=== PATIENT | male | born 1990 | race Caucasian/White ===

== ENCOUNTER 2023-10-07 08:20 | Emergency (ER) | payer OTHER ==
[~2023-10-07] VITALS: Ht 180.3 cm; Wt 104.1 kg
[2023-10-07 11:01] VITALS: BP 138/92
== END 2023-10-07 11:00 | disposition home or self-care (01) ==
LOC: ED 08:20
DX: M23.92 Unspecified internal derangement of left knee (principal)
CPT/HCPCS: 73560